=== PATIENT | male | born 1935 | race Caucasian/White ===

== ENCOUNTER 2017-11-11 20:02 | Inpatient (IN) | payer OTHER ==
[~2017-11-11] VITALS: Ht 172.7 cm; Wt 115.5 kg
[~2017-11-11 20:02] MED LIST: MOBIC7.5 MG PO
[2017-11-11 20:58] LABS: CHLORIDE 100 mEq/L (99-109); POTASSIUM 3.9 mEq/L (3.7-5.4); SODIUM 124 mEq/L (136-147)
[2017-11-11 21:02] LABS: TOTAL BILIRUBIN 0.3 mg/dL (0.0-1.0)
[2017-11-11 21:09] LABS: TROP-I INTERPRETATION NEGATIVE; TROPONIN-I < 0.01 ng/mL (0.0-0.30)
[2017-11-11 21:18] LABS: HEMATOCRIT 37.1 % (38.0-50.0); HEMOGLOBIN 12.5 G/DL (12.5-16.6); MCH 30.4 PG (29.0-34.0); MCHC 33.7 G/DL (30.0-36.0); MCV 90.3 FL (86-99); PLATELET COUNT 155 K/uL (156-360); RBC DIS.WIDTH-CV 14.4 % (11.8-14.6); RBC DIS.WIDTH-SD 47.8 % (39-53); RED BLOOD COUNT 4.11 M/uL (4.00-5.50); WHITE BLOOD COUNT 9.4 K/uL (4.1-10.2)
[2017-11-11 21:20] LABS: ALBUMIN 3.5 g/dL (3.2-4.8)
[2017-11-11 21:22] LABS: GLUCOSE 137 mg/dL (70-99); TOTAL PROTEIN 6.3 g/dL (6.4-8.3)
[2017-11-11 21:26] LABS: ALKALINE PHOSPHATASE 102 IU/L (3-129); CREATININE 0.9 mg/dL (0.6-1.3); GFR ESTIMATE (CALCULATED) > 59 mL/min/ (58.99-99999)
[2017-11-11 21:27] LABS: UREA NITROGEN (BUN) 21 mg/dL (9-23)
[2017-11-11 21:28] LABS: AST (GOT) 21 IU/L (2-34)
[2017-11-11 21:29] LABS: ALT (GPT) 10 IU/L (3-49)
[2017-11-11] MEDS ORDERED: ASPIRIN325 MG PO (22:38)
[2017-11-11] MEDS ORDERED: BAYER CHEWABLE81 MG PO (22:39)
[2017-11-11] MEDS ORDERED: ASCORBIC ACID100 MG PO (22:43)
[2017-11-11] MEDS ORDERED: CYANOCOBALAM1000 MCG PO (22:43)
[2017-11-11] MEDS ORDERED: CALCIUM 500 MG1 EACH PO (22:44)
[2017-11-11] MEDS ORDERED: VITAMIN E100 UNIT PO (22:44)
[2017-11-11] MEDS ORDERED: MAGNESIUM200 MG PO (22:45)
[2017-11-11 23:13] LABS: APPEARANCE CLEAR ((CLEAR)); BILIRUBIN NEGATIVE; BLOOD NEGATIVE; COLOR YELLOW ((YELLOW)); GLUCOSE (STRIP) NEGATIVE; KETONES NEGATIVE; LEUKOCYTES NEGATIVE; NITRITE NEGATIVE; PROTEIN (STRIP) NEGATIVE; SPECIFIC GRAVITY 1.016 (1.000-1.030); UROBILINOGEN 0.2 MG/DL (0.2-1.0)
[2017-11-12 03:24] VITALS: BP 119/56
[2017-11-12 07:49] VITALS: BP 135/58
[2017-11-12 08:37] LABS: BASOPHIL (%) 0.1 % (0-1); EOSINOPHIL (%) 1.2 % (0-5); EOSINOPHIL COUNT 0.1 K/uL (0-0.3); HEMOGLOBIN 13.1 G/DL (12.5-16.6); IMMATURE GRANULOCYTE (%) 0.3 % (0.0-0.7); LYMPHOCYTE (%) 28.5 % (15-42); LYMPHOCYTE COUNT 2.6 K/uL (1.0-2.8); MCH 30.6 PG (29.0-34.0); MCHC 33.6 G/DL (30.0-36.0); MCV 91.1 FL (86-99); MONOCYTE (%) 10.7 % (3-12); NEUTROPHIL (%) 59.2 % (45-76); NEUTROPHIL COUNT 5.3 K/uL (1.8-6.4); PLATELET COUNT 169 K/uL (156-360); RBC DIS.WIDTH-CV 14.4 % (11.8-14.6); RED BLOOD COUNT 4.28 M/uL (4.00-5.50); WHITE BLOOD COUNT 8.9 K/uL (4.1-10.2)
[2017-11-12 08:38] LABS: ALBUMIN 3.6 g/dL (3.2-4.8)
[2017-11-12 08:39] LABS: CHLORIDE 107 mEq/L (99-109); POTASSIUM 4.4 mEq/L (3.7-5.4)
[2017-11-12 08:40] LABS: SODIUM 138 mEq/L (136-147)
[2017-11-12 08:41] LABS: GLUCOSE 153 mg/dL (70-99); TOTAL PROTEIN 6.5 g/dL (6.4-8.3)
[2017-11-12 08:43] LABS: TOTAL BILIRUBIN 0.8 mg/dL (0.0-1.0)
[2017-11-12 08:44] LABS: ALKALINE PHOSPHATASE 101 IU/L (3-129)
[2017-11-12 08:45] LABS: CREATININE 0.8 mg/dL (0.6-1.3); GFR ESTIMATE (CALCULATED) > 59 mL/min/ (58.99-99999)
[2017-11-12 08:46] LABS: AST (GOT) 20 IU/L (2-34); DIRECT BILIRUBIN 0.3 mg/dL (0.0-0.3); UREA NITROGEN (BUN) 16 mg/dL (9-23)
[2017-11-12 08:48] LABS: ALT (GPT) 12 IU/L (3-49)
[2017-11-12 09:37] LABS: TROP-I INTERPRETATION NEGATIVE; TROPONIN-I < 0.01 ng/mL (0.0-0.30)
[2017-11-12 11:30] VITALS: BP 133/61
[2017-11-12 14:27] LABS: LACTATE DEHYDROGENASE 195 IU/L (20-246)
[2017-11-12 16:09] VITALS: BP 134/68
[2017-11-12 19:09] VITALS: BP 110/56
[2017-11-12 23:54] VITALS: BP 112/43
[2017-11-13 07:47] VITALS: BP 149/81
[2017-11-13 15:30] VITALS: BP 134/70
[2017-11-14 00:30] VITALS: BP 118/54
[2017-11-14 07:23] VITALS: BP 139/79
[2017-11-14 20:42] VITALS: BP 124/67
[2017-11-14 20:55] VITALS: BP 105/60
[2017-11-14 23:31] VITALS: BP 121/61
[2017-11-15 06:40] LABS: CHLORIDE 106 MEQ/L (99-109); CREATININE 0.9 MG/DL (0.6-1.3); GFR ESTIMATE (CALCULATED) > 59 mL/min/ (58.99-99999); POTASSIUM 4.4 MEQ/L (3.7-5.4); SODIUM 139 MEQ/L (136-147); UREA NITROGEN (BUN) 19 mg/dL (9-23)
[2017-11-15 06:41] LABS: GLUCOSE 104 mg/dL (70-99)
[2017-11-15 07:43] VITALS: BP 120/58
[2017-11-15] MEDS ORDERED: DOCUSATE SODIU100 MG PO (16:07)
[2017-11-15] MEDS ORDERED: BICALUTAMIDE50 MG PO (16:14)
[2017-11-15 16:31] VITALS: BP 120/69
== END 2017-11-15 18:41 | DRG 723 ==
LOC: EME → EDBD 20:02 → EME 20:02 → EDOF 22:27 → 5EAST 22:27 → ENRESERV 11-12 00:41 → 5EAST 11-12 00:53
PROVIDERS: Emergency Medicine; Family Medicine; Physician Assistant
DX: C61 Malignant neoplasm of prostate (principal); Z19.1 Hormone sensitive malignancy status; C77.8 Secondary and unspecified malignant neoplasm of lymph nodes of multiple regions; C79.51 Secondary malignant neoplasm of bone; C78.00 Secondary malignant neoplasm of unspecified lung; E86.0 Dehydration; E87.1 Hypo-osmolality and hyponatremia; E83.51 Hypocalcemia; I95.1 Orthostatic hypotension; I25.10 Atherosclerotic heart disease of native coronary artery without angina pectoris; E66.9 Obesity, unspecified; Z68.38 Body mass index [BMI] 38.0-38.9, adult; K59.09 Other constipation; I83.90 Asymptomatic varicose veins of unspecified lower extremity; R97.20 Elevated prostate specific antigen [PSA]; I87.8 Other specified disorders of veins; I73.9 Peripheral vascular disease, unspecified
CPT/HCPCS: 70450; 71045; 74177; 80048; 80048 91; 80053; 81003; 82248; 82272; 82948; 83615; 83880; 83935; 84153; 84300; 84403; 84484; 85025; 85027; 93005; 93306; 93925; 99281; 99285; G0378; G8978 GP CJ; G8979 GP CI; J1644; J7030; J9217